=== PATIENT | female | born 1975 | race African-American/Black ===

== ENCOUNTER 2016-12-04 21:32 | Emergency (ER) | payer SELFPAY ==
[~2016-12-04] VITALS: Ht 160 cm; Wt 47.6 kg
--- NOTE | 2016-12-04 22:00 | NUR ---
pt bib self c/o leg tightness x3 days which traveled to her chest. resp even unlabored. skin warm nondiaphoretic. ambulatory with steady gait. NAD noted. in er bed 11.
[2016-12-04 22:08] LABS: BASOPHILS % (AUTO) 0.8 % (0.0-2.0); EOSINOPHILS % (AUTO) 1.1 % (0.0-6.0); HEMATOCRIT 41 % (33-45); HEMOGLOBIN 13.4 g/dL (11.5-14.8); LYMPHOCYTES # (AUTO) 2.1 /CMM (0.8-4.8); LYMPHOCYTES % (AUTO) 54.1 % (20.0-44.0); MEAN CORPUSCULAR HEMOGLOBIN 28 PG (26.0-33.0); MEAN CORPUSCULAR HGB CONC 33 g/dl (31.0-36.0); MEAN CORPUSCULAR VOLUME 85 fL (82-100); MONOCYTES # (AUTO) 0.3 /CMM (0.1-1.30); MONOCYTES % (AUTO) 8.1 % (2.0-12.0); NEUTROPHILS # (AUTO) 1.4 /CMM (1.8-8.9); NEUTROPHILS % (AUTO) 35.9 % (43.0-81.0); PLATELET COUNT (AUTO) 228 /CMM (150-450); RDW COEFFICIENT OF VARIATION 13.6 (11.5-15.0); RED BLOOD CELL COUNT(AUTO) 4.75 MIL/uL (4.0-5.2); WHITE BLOOD COUNT (AUTO) 3.8 K/uL (4.3-11.0)
[2016-12-04 22:12] LABS: APPEARANCE,URINE CLEAR (CLEAR); BILIRUBIN,URINE NEGATIVE (NEGATIVE); BLOOD, URINE NEGATIVE Ery/uL (NEGATIVE); COLOR,URINE YELLOW (YELLOW); KETONES,URINE TRACE (NEGATIVE); LEUKOCYTE ESTERASE ,URINE TRACE (NEGATIVE); NITRITE, URINE NEGATIVE (NEGATIVE); PROTEIN,URINE NEGATIVE (NEGATIVE); UGLUCOSE NEGATIVE (NEGATIVE); UROBILINOGEN,URINE 0.2 EU/dL (0.2)
[2016-12-04 22:22] LABS: CALCIUM, SERUM 8.7 mg/dL (8.5-10.1); CARBON DIOXIDE 30 mmol/L (21-32); CHLORIDE 106 mmol/L (98-107); CREATININE 0.9 mg/dL (0.6-1.3); GFR 69 mL/min (>60); GLUCOSE 82 mg/dL (74-106); POTASSIUM 3.6 mmol/L (3.5-5.1); SODIUM SERUM 145 mmol/L (136-145); UREA NITROGEN, BLOOD 20 mg/dL (7-18)
[2016-12-04 22:27] LABS: INR 0.99 (0.87-1.13); PROTHROMBIN TIME 10.6 SECS (9.5-12.7)
--- NOTE | 2016-12-04 22:27 | NUR ---
CALLED XRAY TO CALL MEGHANN ([employer]ASC[employer]) FOR DUPLEX VENOUS
[2016-12-04 22:28] LABS: ADD URINE CULTURE NO; BACTERIA,URINE Rare /HPF (None Seen); RBC,URINE 0-2 /HPF (0-2); SQUAMOUS EPITHELIAL CELL,UR Few /HPF (None Seen); WBC,URINE 0-2 /HPF (0-3)
[2016-12-04 22:30] LABS: TROPONIN I < 0.017 ng/mL (0.00-0.056)
[2016-12-04] MEDS ORDERED: IV NS 0.9% 250 ML IV ONE (22:33)
[2016-12-04] MEDS ORDERED: IOHEXOL-350 100 ML VIAL IV ONE (22:33)
[2016-12-04] MEDS ORDERED: ASPIRIN 325 MG TABLET ONE (23:19)
--- NOTE | 2016-12-04 23:26 | NUR ---
report given to debra bernal for continuity of care.
[2016-12-04] MEDS ORDERED: ASPIRIN 325 MG TABLET PO ONE (23:30)
--- NOTE | 2016-12-05 01:31 | NUR ---
Patient discharged to home in stable condition. Written and verbal after care instructions given. Patient verbalizes understanding of instruction. IV removed. Catheter intact and site benign. Pressure and 4x4 applied to site. No bleeding noted. Patient is ambulatory with a steady gait.
[2016-12-05 01:32] VITALS: BP 110/78
== END 2016-12-05 01:33 | disposition home or self-care (01) ==
LOC: ER 21:34
DX: R07.89 Other chest pain (principal); J06.9 Acute upper respiratory infection, unspecified; Z79.82 Long term (current) use of aspirin
CPT/HCPCS: 36415; 71010-TC; 80048-TC; 81000-TC; 84484-TC; 84703-TC; 85025-TC; 85378-TC; 85730-TC; 93970-TC; A4606; J7050; Q9967; Z7610

== ENCOUNTER 2017-01-14 21:29 | Emergency (ER) | payer SELFPAY ==
[~2017-01-14] VITALS: Ht 160 cm; Wt 50.8 kg
--- NOTE | 2017-01-14 22:10 | NUR ---
PT AMBULATORY TO ER BED 21. C/O VAGINAL BLEEDING SINCE TUESDAY POST PAP SMEAR. DENIES ABDOMINAL PAIN. N/V. PT ALSO C/O LOWER BACK PAIN. GOWNED AND PLACED ON MONITOR. AWAITING MD MITCHELL.
--- NOTE | 2017-01-14 22:25 | NUR ---
CALLED FOR PELVIC ULTRASOUND
[2017-01-14 22:36] LABS: APPEARANCE,URINE CLEAR (CLEAR); BILIRUBIN,URINE NEGATIVE (NEGATIVE); BLOOD, URINE 3+ Ery/uL (NEGATIVE); COLOR,URINE YELLOW (YELLOW); KETONES,URINE NEGATIVE (NEGATIVE); LEUKOCYTE ESTERASE ,URINE NEGATIVE (NEGATIVE); NITRITE, URINE NEGATIVE (NEGATIVE); PROTEIN,URINE NEGATIVE (NEGATIVE); UGLUCOSE NEGATIVE (NEGATIVE); UROBILINOGEN,URINE 0.2 EU/dL (0.2)
--- NOTE | 2017-01-14 22:44 | NUR ---
U/S TECH AT BEDSIDE FOR PELVIC ULTRASOUND.
[2017-01-14 22:45] LABS: ADD URINE CULTURE NO; BACTERIA,URINE None seen /HPF (None Seen); RBC,URINE 81-100 /HPF (0-2); WBC,URINE 0-2 /HPF (0-3)
[2017-01-14 22:46] LABS: SQUAMOUS EPITHELIAL CELL,UR Few /HPF (None Seen)
--- NOTE | 2017-01-14 23:35 | NUR ---
Patient discharged to home in stable condition. Written and verbal after care instructions given. Patient verbalizes understanding of instruction.
[2017-01-14 23:36] VITALS: BP 132/84
== END 2017-01-14 23:37 | disposition home or self-care (01) ==
LOC: ER 21:32
DX: N83.202 Unspecified ovarian cyst, left side (principal); D25.9 Leiomyoma of uterus, unspecified
CPT/HCPCS: 76856; 81001; 99285; A4606; Z7610; 81000-TC

== ENCOUNTER 2017-03-27 07:47 | Emergency (ER) | payer MEDICAID ==
[~2017-03-27] VITALS: Ht 160 cm; Wt 49.9 kg
--- NOTE | 2017-03-27 07:51 | NUR ---
LOWER BACK PAIN X 1 WEEK, NON TRAUMATIC. AWAITING MD ORDER
[2017-03-27 08:27] LABS: APPEARANCE,URINE SL CLOUDY (CLEAR); BILIRUBIN,URINE NEGATIVE (NEGATIVE); BLOOD, URINE NEGATIVE Ery/uL (NEGATIVE); COLOR,URINE YELLOW (YELLOW); KETONES,URINE NEGATIVE (NEGATIVE); LEUKOCYTE ESTERASE ,URINE NEGATIVE (NEGATIVE); NITRITE, URINE NEGATIVE (NEGATIVE); PH,URINE 5.5 (5.0-8.0); PROTEIN,URINE NEGATIVE (NEGATIVE); UGLUCOSE NEGATIVE (NEGATIVE); UROBILINOGEN,URINE 0.2 EU/dL (0.2)
[2017-03-27 08:29] LABS: PREGNANCY TEST URINE QUAL NEGATIVE (NEGATIVE)
[2017-03-27] MEDS ORDERED: IBUPROFEN 600 MG TABLET PO ONE ×2 (08:30→08:35)
--- NOTE | 2017-03-27 08:39 | NUR ---
Patient discharged to home in stable condition. Written and verbal after care instructions given. Patient verbalizes understanding of instruction.
[2017-03-27 08:42] VITALS: BP 102/63
== END 2017-03-27 08:43 | disposition home or self-care (01) ==
LOC: ER 07:51
DX: M54.5 Low back pain (principal); D21.9 Benign neoplasm of connective and other soft tissue, unspecified; N80.9 Endometriosis, unspecified; D64.9 Anemia, unspecified
CPT/HCPCS: 81000-TC; 84703-TC; A4606; Z7610